=== PATIENT | female | born 1980 ===

== ENCOUNTER 2019-02-01 11:11 | Emergency (ER) | payer SELFPAY ==
[2019-02-01 11:15] VITALS: Wt 90.9 kg
[2019-02-01 12:04] LABS: BASOPHILS 0.1 % (0-2); EOSINOPHILS 0.1 % (0-7); HEMATOCRIT 42.9 % (36.0-48.0); HEMOGLOBIN 13.9 g/dL (12-16); IMMATURE GRANULOCYTES 1.2 % (0-5); MCH 29.8 pg (26.0-34.0); MCHC 32.4 g/dL (31.0-37.0); MCV 91.9 fL (80.0-100.0); MEAN PLATELET VOLUME 10.9 fL (7.4-10.4); MONOCYTES 9.8 % (2-11); NEUTROPHILS 83.8 % (40-80); PLATELET COUNT 190 10x3/uL (130-400); RBC 4.67 10x6/uL (4.00-5.40); RDW 13.4 % (11.5-14.5); WBC 16.1 10x3/uL (4.8-10.8)
[2019-02-01 12:14] LABS: ACETAMINOPHEN 4.8 ug/mL (10.0-30.0); ALBUMIN 2.7 g/dL (3.4-5.0); BILIRUBIN - TOTAL 0.65 mg/dL (0.2-1.3); CARBON DIOXIDE 19.2 mmol/L (21.0-32.0); CREATININE - SERUM 2.2 mg/dL (0.6-1.3); MAGNESIUM - SERUM 1.6 mg/dL (1.8-2.4); POTASSIUM - SERUM 3.7 mmol/L (3.5-5.1); PROTEIN - SERUM 6.2 g/dL (6.4-8.2)
[2019-02-01 12:16] LABS: ANION GAP 13.5 mmol/L (8-16); CALCIUM 6.7 mg/dL (8.5-10.1)
[2019-02-01 14:03] VITALS: BP 111/62
== END 2019-02-01 14:07 | disposition other institution (70) ==
LOC: D.ER 11:11
PROVIDERS: Emergency Medicine
DX: F15.90 Other stimulant use, unspecified, uncomplicated (principal); E87.0 Hyperosmolality and hypernatremia; T88.3XXA Malignant hyperthermia due to anesthesia, initial encounter; I95.9 Hypotension, unspecified; E87.2 Acidosis; G21.0 Malignant neuroleptic syndrome; N28.9 Disorder of kidney and ureter, unspecified; T43.625A Adverse effect of amphetamines, initial encounter